=== PATIENT | male | born 1940 | race Caucasian/White ===

== ENCOUNTER 2017-04-13 08:19 | Emergency (ER) | payer MEDICARE, OTHER ==
[2017-04-13 08:25] VITALS: BP 137/73
[2017-04-13] MEDS ORDERED: BENZONATATE 100 MG CAPSULE PO STA (08:59)
[2017-04-13] MEDS ORDERED: guaiFENesin/DEXTROMETHORPHAN 10 ML UDC PO STA (08:59)
--- NOTE | 2017-04-13 09:03 | ED Physician Documentation ---
History of Present Illness - Stated complaint Stated Complaint: CHEST CONGESTION/COUGH - Chief complaint Chief Complaint: Resp - Additonal information Additional information: hx from pt healthy 76 male visited family in [place] for [place] and was exposed to sick people now with 5 days of fever chills myalgias heavy deep productive cough unable to sleep 2/2 cough Review of Systems Constitutional: reports: Fever, Chills, Myalgias Respiratory: reports: Cough GI: denies: Vomiting, Diarrhea Musculoskeletal: denies: Extremity swelling Endocrine: denies: Easy bruising / bleeding Immunocompromised: denies: Immunocompromised PD PAST MEDICAL HISTORY - Past Medical History Past Medical History: No - Past Surgical History Ortho: Other HEENT: Tonsil/Adenoidectomy - Present Medications Home Medications: Ambulatory Orders Medication Instructions Recorded Confirmed Azithromycin [Zithromax] 250 mg PO DAILY #6 tablet 04/13/17 Benzonatate [Tessalon] 100 mg PO TID PRN #20 capsule 04/13/17 guaiFENesin/CODEINE [Robitussin AC] 5 - 10 ml PO QPM PRN #120 udc 04/13/17 - Allergies Allergies/Adverse Reactions: Allergies Allergy/AdvReac Type Severity Reaction Status Date / Time No Known Drug Allergies Allergy Verified 04/13/17 08:25 - Social History Does the pt smoke?: No Smoking Status: Never smoker Does the pt drink ETOH?: Yes Does the pt have substance abuse?: No - Immunizations Immunizations are current?: Yes PD ED PE NORMAL - Vitals Vital signs reviewed: Yes - General General: Alert and oriented X 3 - Neck Neck: Supple, no meningeal sign - Cardiac Cardiac: RRR - Respiratory Respiratory: Other (ronchi shani bases) - Abdomen Abdomen: Soft, Non tender - Derm Derm: Normal color - Extremities Extremities: No edema - Neuro Neuro: Alert and oriented X 3 Results - Vitals Vitals: Vital Signs - 24 hr 04/13/17 08:23 Temperature 37.1 C Heart Rate 53 L Respiratory 18 Rate Blood Pressure 137/73 H O2 Saturation 97 Oxygen O2 Source Room air - Rads (name of study) CXR Radiology: See rad report (LLL pna) Departure - Departure Disposition: 01 Home, Self Care Clinical Impression: Pneumonia Qualifiers: Pneumonia type: due to unspecified organism Laterality: left Lung location: lower lobe of lung Qualified Code(s): J18.1 - Lobar pneumonia, unspecified organism Condition: Good Instructions: ED Pneumonia Adult Prescriptions: Azithromycin [Zithromax] 250 mg PO DAILY #6 tablet Benzonatate [Tessalon] 100 mg PO TID PRN #20 capsule PRN Reason: to ease cough guaiFENesin/CODEINE [Robitussin AC] 5 - 10 ml PO QPM PRN #120 udc PRN Reason: Cough Comments: You have a left lung pneumonia Take the antibiotics as prescribed - finish all the antibiotics even if you feel better For the cough, take the tessalon during the day and the robitussin with codeine before bed Follow up with your PMD if not better by next week. Return to the ER if worse over the holiday weekend
--- NOTE | 2017-04-13 09:18 | XRAY Preliminary Report ---
Exam: XR CHEST 2 VIEW PA/LAT IMPRESSION: Left lower lobe atelectasis and potential early pneumonia. [facility] SITE ID: [id number]
--- NOTE | 2017-04-13 09:18 | XRAY Report ---
EXAM: CHEST RADIOGRAPHY EXAM DATE: 04/13/2017 08:46 AM. CLINICAL HISTORY: Productive cough for 5 days. COMPARISON: None. TECHNIQUE: 2 views. FINDINGS: Lungs/Pleura: Elongated left lower lobe opacities. No pneumothorax. No definite pleural effusion. Mil d peribronchial thickening. Mediastinum: Heart and mediastinal contours are unremarkable. Other: None. IMPRESSION: Left lower lobe atelectasis and potential early pneumonia. [facility] Referring Provider Line: [phone] SITE ID: [id number]
== END 2017-04-13 09:44 | disposition home or self-care (01) ==
LOC: ED 08:19
DX: J18.9 Pneumonia, unspecified organism (principal)
CPT/HCPCS: 71020; 99283; A9270